=== PATIENT | female | born 1990 | race Caucasian/White ===

== ENCOUNTER 2020-01-31 13:28 | Emergency (ER) | payer SELFPAY ==
--- NOTE | ~2020-01-31 | US_ITS ---
EXAMINATION: US OB limited DATE: 01/31/2020 15:19 INDICATION: Second trimester ultrasound, no care TECHNIQUE: Real-time ultrasound of the pelvis was performed. The interpreting radiologist was not pre sent for the study. COMPARISON: None. FINDINGS: There is a single living fetus in breech presentation. The placenta is anterior. card iac activity and movement are noted. heart rate is 142 beats per minute (bpm). The amniot ic fluid index is 16 cm which is normal. The following biometric data were obtained: Biparietal diameter (BPD): 6.0 cm; head circumference (HC): 22.5 cm; abdominal circumference (AC): 20 .4 cm; femur length (FL): 2.6 cm. The femoral length to abdominal circumference ratio, femoral length to biparietal diameter ratio, and the femoral length to head circumference ratio are greater than two standard deviations below the me an. Estimated weight is 503 g +/- 75 g, which correlates with the <3rd percentile when 05/18/2020 is used as estimated date of delivery. As single measurements, these parameters are each equal to the following estimated gestational ages w ith ranges of +/- 2 standard deviations: BPD: 24 weeks 3 days +/- 2 weeks 1 days. HC: 24 weeks 4 days +/- 2 weeks 0 days. AC: 25 weeks 1 days +/- 2 weeks 1 days. FL: 18 weeks 1 days +/- 1 weeks 3 days. estimated gestational age based solely on measurements from this exam is 23 weeks 1 days +/- 1 weeks 4 days. IMPRESSION: 1. Single living fetus in breech presentation. 2. Estimated weight is 503 g +/- 75 g, which correlates with the <3rd percentile when 05/18/2020 is used as estimated date of delivery. 3. The femoral length to abdominal circumference ratio, femoral length to biparietal diameter ratio, and the femoral length to head circumference ratio are greater than two standard deviations below the mean. Reviewed, dictated and finalized at location A. IMPRESSION: 1. Single living fetus in breech presentation. 2. Estimated weight is 503 g +/- 75 g, which correlates with the <3rd per centile when 05/18/2020 is used as estimated date of delivery. 3. The femoral length to abdominal circumference ratio, femoral length to bipar ietal diameter ratio, and the femoral length to head circumference ratio are gr eater than two standard deviations below the mean.
[2020-01-31 13:38] VITALS: BP 142/86; PULSE 117; RESP 18; TEMP 36.7; O2SAT 99
--- NOTE | 2020-01-31 13:43 | ED.GENADULT ---
HPI - General Adult General Chief complaint: Unspecified Stated complaint: unknown EGA , wanting checked Time Seen by Provider: 01/31/20 13:38 Source: patient and RN notes reviewed Mode of arrival: ambulatory Limitations: no limitations History of Present Illness HPI narrative: Pt is a 29 y/o female who presents to the ED with c/o needing proof of . She notes that her LMP was 08/12/19. Pt states that she has been unable to see an LO[employer] for her due to her requiring proof of her and an expected due date in order to be approved for her medical card. She notes that she decided to be evaluated in the ED this afternoon to receive a proof of . Pt currently denies any vaginal bleeding, ABD pain, nausea, or vomiting. MD complaint: Proof of Associated symptoms: denies other symptoms Treatments prior to arrival: none Related Data Home Medications Medication Instructions Recorded Confirmed No Home Medications 01/31/20 01/31/20 Allergies Allergy/AdvReac Type Severity Reaction Status Date / Time Penicillins Allergy Rash Verified 01/31/20 13:42 Sulfa (Sulfonamide Allergy Rash Verified 01/31/20 13:42 Antibiotics) Review of Systems Review of Systems: All systems reviewed & are unremarkable except as noted in HPI and below Gastrointestinal: Gastrointestinal: Denies abdominal pain, Denies nausea and Denies vomiting Genitourinary: Genitourinary: Denies abnormal vaginal bleeding PMFSH Past Medical History Medical History 1 Nasal fracture Surgical History Surgical History History of nasal surgery repair of nasal fracture Social History Social History Smoking packs per day: 1 Smoking cigarettes per day: 20.0 Smoking status: Current every day smoker Exam Narrative: Exam Narrative: GENERAL: Well-appearing, well-nourished, and in no acute distress. HEAD: Normocephalic, atraumatic NOSE: Nares clear, no rhinorrhea or epistaxis THROAT:Mucous membranes moist, Oropharynx normal without erythema, exudate, peritonsillar swelling or fluctuance NECK: Supple, without lymphadenopathy or mass RESPIRATORY: No respiratory distress, Airway patent, Respirations non-labored, Clear to auscultation without rales, rhonchi or wheeze HEART: Regular rate and rhythm. No murmur heard. Normal peripheral pulses. ABDOMEN: gravid ,Soft, nontender, nondistended, normal active bowel sounds. No masses. No rebound or guarding, No organomegaly. EXTREMITIES: No edema, normal strength with full range of motion. SKIN: Warm, dry, normal color without rash NEURO: Alert and oriented x3. CN 2-12 grossly intact. No focal deficits. PSYCH: Normal mood and affect. Course Consultations Consultation #1: Discussed case with on-call for OB, Dr. Coronel. Request for pt to have US and labs. Pt should be able to follow-up with them within 30 days as outpatient. Date: 01/31/20 Time: 14:17 Vital Signs Vital signs: Vital Signs Temperature 98.1 F 01/31/20 13:38 Pulse Rate 117 H 01/31/20 13:38 Respiratory Rate 18 01/31/20 13:38 Blood Pressure 142/86 H 01/31/20 13:38 Pulse Oximetry 99 01/31/20 13:38 Temperature 98.1 F 01/31/20 13:38 Pulse Rate 92 01/31/20 15:43 Respiratory Rate 18 01/31/20 15:43 Blood Pressure 138/75 01/31/20 15:43 Pulse Oximetry 97 01/31/20 15:43 Medical Decision Making Vital Signs Vital Signs: Vital Signs Temperature 98.1 F 01/31/20 13:38 Pulse Rate 117 H 01/31/20 13:38 Respiratory Rate 18 01/31/20 13:38 Blood Pressure 142/86 H 01/31/20 13:38 Pulse Oximetry 99 01/31/20 13:38 Temperature 98.1 F 01/31/20 13:38 Pulse Rate 92 01/31/20 15:43 Respiratory Rate 18 01/31/20 15:43 Blood Pressure 138/75 01/31/20 15:43 Pulse Oximetry 97 01/31/20
[2020-01-31 15:35] LABS: Hepatitis B Surface Antigen Negative (Negative)
[2020-01-31 15:40] LABS: HAV RESULT Negative (Negative); Hepatitis B Core IgM Result Negative (Negative)
[2020-01-31 15:43] VITALS: BP 138/75; PULSE 92; RESP 18; O2SAT 97
[2020-01-31 15:55] LABS: HIV 1/2 Ab P24 Ag Result Negative (Negative); Hepatitis C Virus Antibody Reactive (Negative)
[2020-02-01 09:03] LABS: Rapid Plasma Reagin Non-Reactive (NonReactive)
== END 2020-01-31 15:44 | disposition home or self-care (01) ==
PROVIDERS: Emergency Provider General Practice
DX: Z32.01 Encounter for pregnancy test, result positive (principal); O99.332 Smoking (tobacco) complicating pregnancy, second trimester; F17.210 Nicotine dependence, cigarettes, uncomplicated; Z3A.23 23 weeks gestation of pregnancy
CPT/HCPCS: 36415; 76815; 80074; 83036; 86592; 86703; 86850; 86900; 86901; 87522; 99284; G0432